=== PATIENT | male | born 1975 ===

== ENCOUNTER → 2020-08-18 | Emergency (ER) | payer OTHER ==
[~2020-08-18] VITALS: Ht 170.2 cm; Wt 95.3 kg
== END | disposition expired ==
LOC: ER 16:21 → EDBD 16:21 → ER 20:45
DX: S71.142A Puncture wound with foreign body, left thigh, initial encounter (principal); Y35.091A Legal intervention involving other firearm discharge, law enforcement official injured, initial encounter; Y93.89 Activity, other specified; Y92.89 Other specified places as the place of occurrence of the external cause; Y99.8 Other external cause status